=== PATIENT | male | born 1975 | race African-American/Black ===

== ENCOUNTER 2018-06-10 01:33 | Observation (INO) | payer OTHER ==
[2018-06-10] MEDS ORDERED: Acetaminophen 325 MG TAB PO PRN (03:30)
[2018-06-10] MEDS ORDERED: Ondansetron ODT 4 MG TAB SL PRN (03:30)
[2018-06-10] MEDS ORDERED: Ondansetron HCl/PF 4 MG/2 ML Vial IVP PRN ×2 (03:30→07:55)
[2018-06-10 03:46] VITALS: BMI 30.3
[2018-06-10 06:35] LABS: Troponin I Less than 0.010 ng/mL (< 0.028)
[2018-06-10] MEDS ORDERED: Enoxaparin Sodium 40 MG/0.4 ML SYRINGE SC SCH (07:45)
[2018-06-10] MEDS ORDERED: traMADol HCl 50 MG TAB PO PRN (07:55)
[2018-06-10] MEDS ORDERED: hydrALAZINE 20 MG/ML VIAL SLOW IVP PRN (07:55)
[2018-06-10] MEDS ORDERED: Diabetic Tussin 200 MG/10 ML UDCUP PO PRN (07:55)
[2018-06-10] MEDS ORDERED: Loratadine 10 MG TAB PO PRN (07:55)
[2018-06-10] MEDS ORDERED: cloNIDine 0.1 MG TAB PO PRN (07:55)
[2018-06-10] MEDS ORDERED: Calcium Carbonate 500 MG ChewTAB PO PRN (07:55)
[2018-06-10] MEDS ORDERED: Lorazepam 1 MG TAB PO PRN (07:55)
[2018-06-10] MEDS ORDERED: Mag-Al 1200 mg/1200 mg/30 ML UDCUP PO PRN (07:55)
[2018-06-10] MEDS ORDERED: Benzonatate 100 MG CAP PO PRN (07:55)
[2018-06-10] MEDS ORDERED: Senokot 8.6 MG TAB PO PRN (07:55)
[2018-06-10] MEDS ORDERED: Nitroglycerin 0.4 MG TAB (25 Tab Bottle) SL PRN (07:55)
[2018-06-10] MEDS ORDERED: Bisacodyl 5 MG TAB PO PRN (07:55)
[2018-06-10] MEDS ORDERED: Aspirin 325 MG TAB PO SCH (08:00)
[2018-06-10] MEDS ORDERED: Metoprolol Tartrate 25 MG TAB PO SCH (09:00)
[2018-06-10] MEDS ORDERED: Pantoprazole 40 MG GRANULES PACKET PO SCH (09:00)
[2018-06-10] MEDS ORDERED: Hydrochlorothiazide 25 MG TAB PO SCH (09:00)
[2018-06-10] MEDS ORDERED: ADENOSINE 60 MG/20 ML VIAL ONE (09:57)
[2018-06-10 11:34] LABS: Amphetamine Not Detected (NotDetected); Barbiturates Screen Not Detected (NotDetected); Benzodiazepine Screen Not Detected (NotDetected); Cocaine Metabolite Screen Not Detected (NotDetected); Medtox Control Line Valid? VALID (VALID); Medtox Reader # READER 4; Methadone Not Detected (NotDetected); Methamphetamine Not Detected (NotDetected); Opiate Screen Detected (NotDetected); Oxycodone Screen Not Detected (NotDetected); Phencyclidine (PCP) Not Detected (NotDetected); THC/Cannabinoid Screen Not Detected (NotDetected); Tricyclic Screen Not Detected (NotDetected)
--- NOTE | 2018-06-10 15:11 | NM ---
NUCLEAR MEDICINE CARDIAC MYOCARDIAL PERFUSION SPECT EJECTION FRACTION STUDY WALL MOTION CINE: Date: 06/10/18 HISTORY: 43-year-old male with hypertension presents with acute chest pain. TECHNIQUE: Number of days: 1 Rest study: Tc99m sestamibi (Cardiolite) dose: 9.4 mCi Pharmacologic stress: adenosine dose: 50.4 mg Stress study: Tc99m sestamibi (Cardiolite) dose: 27.0 mCi FINDINGS: CARDIAC (MYOCARDIAL PERFUSION) SPECT Distribution of sestamibi is homogeneous throughout the left ventricle, with no fixed or reversible m yocardial perfusion defects. EJECTION FRACTION STUDY EF = 58% WALL MOTION CINE The left ventricular wall motion is normal. There is normal systolic wall thickening. IMPRESSION: Normal. ginny[] POS: [facility]
[2018-06-10 15:44] VITALS: TEMP 97.9
[2018-06-10] MEDS ORDERED: ALPRAZolam 0.25 MG TAB PO SCH (15:45)
[2018-06-10] MEDS ORDERED: Amlodipine 10 MG TAB PO SCH (16:15)
[2018-06-10 16:22] VITALS: BP 146/96
--- NOTE | 2018-06-10 17:31 | SS ---
DATE OF ADMISSION: 06/10/2018 DATE OF DISCHARGE: 06/10/2018 DISCHARGE DISPOSITION: [facility] to [facility] DISCHARGE DIAGNOSES: 1. Chest pain, noncardiac. 2. Uncontrolled hypertension, much improved. PRIMARY CARE PHYSICIAN: None. HISTORY OF PRESENT ILLNESS: Mr. Villavicencio is a 43-year-old inmate who presented to the ER initially on 06/09/2018 at [place] with complaints of high blood pressure and chest pressure. He was 175/109 at that time. His workup was unremarkable. He was started on amlodipine and was continued on the h ydrochlorothiazide he was already receiving. He was discharged. He came back to the emergency room the next day that was earlier today for same complaints of chest pain and pressure. At this time, hi s blood pressure was 161/113. He was transferred to our facility for further evaluation and rule out acute coronary syndrome. His 12-lead EKG was unremarkable. In our emergency room, his blood pressure was 161/113 again as recorded. The patient reports that it is more of a pressure-like sensation and it happens whenever he gets anxious. There are also some c oncerns for psychiatric illness as police officers accompany him report that he was hallucinating ear lier and complained of hearing voices. Nevertheless, his initial workup in the emergency room was un remarkable. Serial cardiac enzymes are negative. Labs were unremarkable. BNP normal. Troponin les s than 0.010 and his drug screen only showed opioids. His chest x-ray done yesterday at [facility] was reviewed and was unremarkable. He was admitted for further evaluation and ACS wo rkup. PAST MEDICAL HISTORY: Hypertension. PAST SURGICAL HISTORY: 1. Eye surgery. 2. Hernia repair. SOCIAL HISTORY: He drinks socially twice a month. Former drug abuser, currently smokes half pack of cigarettes per day. FAMILY HISTORY: Some family members with heart disease, but he cannot specify. ALLERGIES: No known medication allergies. CURRENT MEDICATIONS: Hydrochlorothiazide 25 mg daily, Norvasc 10 mg daily. Please note that these m edications were only started last night in the ER. REVIEW OF SYSTEMS: A 12-point review of systems is done. It is negative except for those mentioned in the history and physical. IMAGING DATA: A 12-lead EKG by my review shows normal sinus rhythm with 69 beats per minute, left ve ntricular hypertrophy and no acute changes. Chest x-ray by my review has no evidence of pneumonia or edema. LABORATORY DATA: CBC is unremarkable. Serum chemistry unremarkable. Creatinine kinase 113, CK-MB 1 .1, troponin less than 0.010 and BNP 12.6. PHYSICAL EXAMINATION: VITAL SIGNS: Earlier this morning, temperature 98.1, pulse of 62, respirations 16, saturating 98% on room air, blood pressure 170/97. Most current blood pressure is 146/96. GENERAL: No acute distress. Awake, alert, oriented x3. He does have some difficulty focusing and a t times he starts hitting his head saying that he is hearing voices. Then he would focus back again to the current issue. HEENT: Mucous membrane is moist and pink. No oropharyngeal exudate or erythema. Head is normocepha lic, atraumatic. Pupils are equal, reactive to light and accommodation. Extraocular movement intact . NECK: Supple without any lymphadenopathy, JVD or bruit. CHEST: Clear to auscultation without any wheezing, rales or rhonchi. HEART: Regular without any murmur, rubs or gallops. ABDOMEN: Soft, nontender, nondistended, positive bowel sounds. EXTREMITIES: Free of any cyanosis, clubbing, or edema. NEUROLOGIC: Examination is nonfocal. SKIN PLAN: Free of any rashes or bruises. I feel warm and dry to touch. PSYCHIATRIC: The patient does seem to have some psychiatric issues that I am not qualified to diagno se. He does appears unfocused and exhibits tangential thinking and complains of hearing voices. IMPRESSION AND PLAN: 1. Chest pain. A stress test was ordered for him and serial cardiac enzymes were done. Stress test does not have any evidence of reversible or fixed defect. His ejection fraction is 58%. He was res tarted on his hydrochlorothiazide and amlodipine with good blood pressure control. I think most of h is symptoms are coming from anxiety as well as uncontrolled hypertension. I have discussed it with t he [employer] launch commander present in his room. Unfortunately, his anxiety cannot be treated with antianxiety medications as long as he is in [facility]. I would refer him to outpatient psych eval, but meanwhile, hi s ACS has been ruled out and he is ready to be discharged back to [facility]. He will restart his amlodipi ne and hydrochlorothiazide. I have made sure that he does have the medications available for him at [facility] for tonight. He was given Norvasc the day prior to discharge. 2. Uncontrolled hypertension, much better controlled. Anxiety is also a contributing factor for him . He is instructed to have the medications reinitiated once he returns back. I have instructed guar ds to have his blood pressure checked every day for the next several days for now. DISPOSITION: The patient will be discharged back to [facility]. ACS has been ruled out. Discharge medica tions remain the same as admission medications.
[2018-06-11] MEDS ORDERED: Amlodipine 10 MG TAB PO SCH (09:00)
--- NOTE | 2018-06-12 14:02 | STRESS ---
Acquisition Time: 2018-06-10 12:21:08 Total Exercise Time: 00:04:00 Test Indications: CHEST PAIN Medications: Protocol: ADENOSINE Max HR: 100 BPM 56% of Pred: 177 BPM Max BP: 158/098 mmHG Max Work Load: 1.0 METS RESTING ECG: NORMAL SINUS RHYTHM SYMPTOMS: DYSPNEA ON EXERTION NORMAL BP RESPONSE ECTOPY: NONE ECG STRESS: NO SIGNIFICANT CHANGES INTERPRETATION: AWAIT NUCLEAR IMAGES FOR DEFINITIVE DIAGNOSIS Confirmed by BRIJESH BARR ([id number]), order editor LINN LLANOS ([id number]) on 06/12/2018 2:01:45 PM Referred By: MD Dani MUHAMMAD Confirmed By:BRIJESH BARR
== END 2018-06-10 18:00 ==
LOC: EEVIPCON 01:33 → ERS 01:33 → 2SW 02:00
PROVIDERS: ADMIT Hospitalist; ATTEND Hospitalist
DX: R07.89 Other chest pain (principal); I10 Essential (primary) hypertension; F17.210 Nicotine dependence, cigarettes, uncomplicated; Z79.899 Other long term (current) drug therapy
CPT/HCPCS: 36415; 78452; 80306; 82550; 84484; 90471; 90732; 93005; 93017; 96372; 99406; A4216; A9500; G0009; G0378; J0153; J1650

== ENCOUNTER 2018-09-18 16:57 | Emergency (ER) | payer OTHER, SELFPAY ==
[2018-09-18 18:18] LABS: Bilirubin Small (Negative); Blood, Urine Negative (Negative); Clarity CLEAR (Clear); Glucose, Urine (Dipstick) Negative (Negative); Leukocyte Negative (Negative); Nitrite Negative (Negative); Protein, Urine (Dipstick) Negative (Neg-Trace)
--- NOTE | 2018-09-18 19:02 | RAD ---
RIGHT SHOULDER THREE VIEWS: HISTORY: The patient presents from skilled nursing with right shoulder pain. FINDINGS: Three views of the right shoulder demonstrate no evidence of right shoulder fractures, subluxations, or bony lesions. IMPRESSION: Unremarkable three views right shoulder. POS: [facility]
--- NOTE | 2018-09-18 19:03 | RAD ---
RIGHT ELBOW TWO VIEWS: HISTORY: Pain. FINDINGS: AP and lateral views of the right elbow are obtained. Two views of the right elbow demonstrate no evidence of right elbow fractures, subluxations, or bony lesions. IMPRESSION: Normal two views right elbow. POS: [facility]
--- NOTE | 2018-09-18 19:05 | CT ---
CT BRAIN WITHOUT CONTRAST: INDICATIONS: History of head pain, right shoulder pain, and hematuria. COMPARISON: 09/15/2018 FINDINGS: No acute infarct, hemorrhage, or hydrocephalus is present. The septum pellucidum and third ventricle are midline. There is a retained metallic foreign body seen within the right orbit, adjacent to the right globe. The mastoid air cells are clear. The paranasal sinuses are clear. The skull is intac t. IMPRESSION: 1. No acute intracranial abnormality. 2. Retained metallic foreign body within the right aspect of the right orbit, adjacent to the right globe. This would preclude an magnetic resonance examination of the brain. Opthalmology consultatio n recommended prior to MR exam if deemed clinically necessary. POS: [facility]
--- NOTE | 2018-09-18 19:06 | CT ---
CT CERVICAL SPINE WITHOUT CONTRAST: INDICATIONS: Right shoulder pain. Blood in the urine with nausea and vomiting. The patient has been having right shoulder pain. Concern for neck injury. FINDINGS: No acute fracture or subluxation is evident. The craniocervical junction is within normal limits. T he lung apices are clear. The prevertebral soft tissues are within normal limits. IMPRESSION: No acute osseous abnormality. POS: [facility]
== END 2018-09-18 18:48 ==
LOC: ERS 16:57
DX: M25.511 Pain in right shoulder (principal); M25.521 Pain in right elbow; I10 Essential (primary) hypertension; F17.210 Nicotine dependence, cigarettes, uncomplicated
CPT/HCPCS: 70450; 72125; 81003

== ENCOUNTER 2018-10-23 10:31 | Emergency (ER) | payer OTHER ==
[2018-10-23 11:15] LABS: #Basophils 0.1 thou/uL (0.0-0.2); #Eosinphils 0.2 thou/uL (0.0-0.7); #Lymphocytes 2.8 thou/uL (1.20-3.40); #Monocytes 0.7 thou/uL (0.11-0.59); #Neutrophils 4.1 thou/uL (1.40-6.50); %Basophils 0.8 % (0.0-1.0); %Eosinophils 2.3 % (0.0-10.0); %Lymphocytes 35.9 % (21.0-51.0); %Monocytes 8.7 % (0.0-10.0); %Neutrophils 52.3 % (42.0-75.0); Hemoglobin 14.4 g/dL (14.0-18.0); Mean Corpuscular HGB CONC 33.5 g/dL (32.0-36.0); Mean Corpuscular Hemoglobin 30.5 pg (27.0-31.0); Mean Corpuscular Volume 91.1 fL (78.0-98.0); Mean Platelet Volume 7.1 fL (7.4-10.4); Platelet Count 263 thou/uL (130-400); RBC Distribution Width 12.4 % (11.5-14.5); Red Blood Cell (RBC) Count 4.72 mill/uL (4.70-6.10); White Blood Cell (WBC) Count 7.7 thou/uL (4.8-10.8)
--- NOTE | 2018-10-23 11:16 | RAD ---
PORTABLE CHEST: History: Chest pain. FINDINGS: Lung pisano are clear. Heart and mediastinum appear normal. Vasculature is normal. IMPRESSION: Unremarkable portable chest. POS: [facility]
[2018-10-23 11:43] LABS: ALT (SGPT) 8 U/L (8-55); AST (SGOT) 11 U/L (5-34); Albumin 3.9 g/dL (3.5-5.0); Alkaline Phosphatase 98 U/L (40-150); Anion Gap 11 mmol/L (10-20); BUN (Urea Nitrogen) 14 mg/dL (8.9-20.6); Bilirubin, Total 0.3 mg/dL (0.2-1.2); CK (CPK) 93 U/L (30-200); Calc. Creatinine Clearance 0 mL/min (70-130); Calcium 9.2 mg/dL (7.8-10.44); Carbon Dioxide 27 mmol/L (22-29); Chloride 104 mmol/L (98-107); Estimated GFR-MDRD Greater than 90; Globulin 3.4 g/dL (2.4-3.5); Glucose 80 mg/dL (70-105); Lipase 12 U/L (8-78); Potassium 3.7 mmol/L (3.5-5.1); Protein, Total 7.3 g/dL (6.0-8.3); Sodium 138 mmol/L (136-145)
== END 2018-10-23 17:02 | disposition home or self-care (01) ==
LOC: ERS 10:31
DX: R07.89 Other chest pain (principal); I10 Essential (primary) hypertension; F17.210 Nicotine dependence, cigarettes, uncomplicated; Z79.899 Other long term (current) drug therapy; Z71.6 Tobacco abuse counseling
CPT/HCPCS: 36415; 71045; 80053; 82550; 83690; 84484; 85025; 93005; 99406

== ENCOUNTER 2018-11-15 17:42 | Emergency (ER) | payer OTHER ==
[2018-11-15 19:34] LABS: Bilirubin Negative (Negative); Blood, Urine Negative (Negative); Clarity CLOUDY (Clear); Glucose, Urine (Dipstick) Negative (Negative); Leukocyte Trace (Negative); Nitrite Negative (Negative); Protein, Urine (Dipstick) Negative (Neg-Trace); Specific Gravity, Urine 1.012 (1.002-1.036); pH, Urine 7.5 (5.0-9.0)
[2018-11-15 19:35] LABS: Bacteria/HPF None Seen HPF (None Seen); Hyaline Casts/LPF 0-3 HYALINE CAST LPF (0-3 Hyaline); RBC/HPF 0-3 HPF (0-3); Squamous Epithelial None Seen HPF (0-3); WBC/HPF 0-3 HPF (0-3)
--- NOTE | 2018-11-15 20:39 | ULT ---
LEFT LOWER EXTREMITY VENOUS DOPPLER 11/15/18 PROVIDED CLINICAL HISTORY: Left leg pain. FINDINGS: Dorado scale and color doppler sonography with spectral analysis was performed of the left common femor al, femoral, popliteal, posterior tibial, greater saphenous and profunda femoral veins, demonstrating a normal sonographic appearance to each. IMPRESSION: No sonographic evidence for left lower extremity deep venous thrombosis. POS: [facility]
--- NOTE | 2018-11-15 21:14 | ULT ---
SCROTAL ULTRASOUND WITH DOPPLER 11/15/18 PROVIDED CLINICAL HISTORY: Right sided testicular pain. FINDINGS: Right testicle measures abut 3.6 x 2.5 x 3.9 cm and demonstrates a normal forman scale sonographic appe arance. Left testicle measures about 2.9 x 2 x 2.7 cm and demonstrates a normal forman scale sonographi c appearance. No significant abnormality involving either epididymis. No significant hydrocele. IMPRESSION: Normal blood flow is seen to both testicles. POS: [facility]
== END 2018-11-15 20:44 ==
LOC: ERS 17:42 → EEVIPCON 17:42 → ERS 20:44
DX: I86.1 Scrotal varices (principal); I10 Essential (primary) hypertension; F31.9 Bipolar disorder, unspecified; F17.210 Nicotine dependence, cigarettes, uncomplicated; Z79.899 Other long term (current) drug therapy
CPT/HCPCS: 76870; 81003; 81015; 93970; 93976